=== PATIENT | female | born 1965 | race Caucasian/White ===

== ENCOUNTER 2024-09-17 09:30 | Day surgery (SDC) | payer OTHER ==
[~2024-09-17 09:30] MED LIST: ACETAMINOPHEN 500 MG TABLET (FP) PO PRN
[2024-09-17 09:32] VITALS: RESP 16
[2024-09-17] MEDS: LIDOCAINE HCL 1% PRESERVATIVE FREE - 30ML VIAL IJ ONE (10:19)
[2024-09-17] MEDS: IOHEXOL 180 MG/1 ML ML IJ ONE (10:20)
[2024-09-17] MEDS: TRIAMCINOLONE ACET 40MG/1ML VIAL IM ONE (10:21)
[2024-09-17] MEDS: BUPIVACAINE HCL/PF 0.5% (5MG/ML) 10 ML VIAL IJ ONE (10:21)
[2024-09-17 10:34] VITALS: BP 115/80; PULSE 73; TEMP 97.2
== END 2024-09-17 10:42 | disposition home or self-care (01) ==
LOC: JASU-SURG 09:30
PROVIDERS: ATTEND Pain Medicine Pain Medicine
PROC: 3E0U3BZ Introduction of Anesthetic Agent into Joints, Percutaneous Approach (ICD-10-PCS; 2024-09-17)
PROC: 3E0U33Z Introduction of Anti-inflammatory into Joints, Percutaneous Approach (ICD-10-PCS; principal; 2024-09-17 10:15)
DX: M53.3 Sacrococcygeal disorders, not elsewhere classified (principal)
CPT/HCPCS: 76000-TC-FY